=== PATIENT | male | born 1955 | race Caucasian/White ===

== ENCOUNTER 2018-10-26 15:23 | Inpatient (IN) | payer OTHER ==
[~2018-10-26 15:23] MED LIST: 00186-0370-20 IH; 00186-0372-20 IH; ASPIRIN 81M81 MG/TA2 PO; ASPIRIN E.C. 8181 MG PO; BENICAR 20MG TA20 MG PO; CENTRUM SILVER1 CTB PO; COMPLETE SENIOR1 TA1 PO; DALIRESP500 MCG PO; FERROUS SU325 MG/TAB PO; GLUCOPHAGE500 MG/TAB PO; LEVAQUIN 750MG750 M1 PO; NIGHT-TIME COL300 ML PO; PAXIL 20MG20 MG PO; PRILOSEC10 MG PO; REQUIP3 MG PO; REQUIP4 MG PO; RT SPIRIVA18 MCG IH; SINGULAIR 110 MG/TAB PO; TRELEGY ELLIPT1 EACH IH; TRILIPIX 135MG; TRILIPIX 135MG PO; VITAMIN D31000 IU PO; VITAMINC1000TA PO; ZANTAC 150150 MG
--- NOTE | 2018-10-26 15:30 | NUR ---
Pt arrived to room 317, he is independent in the room. He is A/O x3. His breathing is even and unlabored on RA, pt reports he has had SOB x3 months, intermittent cough present. Pt denies any pain at this time. No N/V. POC discussed with patient who verbalizes understanding. IV started to R hand. Call light within reach.
[2018-10-26] MEDS ORDERED: BUSPAR10 MG PO (15:35)
[2018-10-26] MEDS ORDERED: MUCINEX DM 30 M1 TE1 (15:36)
[2018-10-26] MEDS ORDERED: AMBIEN 10MG10 MG PO (15:36)
[2018-10-26 17:13] VITALS: BP 136/76; PULSE 86; TEMP 98.1
[2018-10-26 17:48] LABS: BASO # 0.1 (0.0-0.2); BASO % 0.9 % (0.0-2.0); EOS # 0.4 (0.0-0.7); EOS % 4.9 % (0-4.0); GRAN # 6.2 (1.4-6.5); GRAN % 68.8 % (42.2-75.2); HEMATOCRIT 39.9 % (42.0-52.0); HEMOGLOBIN 12.8 g/dl (13.5-18.0); LYMPH # 1.6 (1.2-3.4); LYMPH % 17.8 % (20.0-51.0); MEAN CELL VOLUME 81 fl (80.0-100.0); MEAN CORPUSCULAR HEMOGLOBIN 26 pg (27.0-31.0); MEAN CORPUSCULAR HGB CONC 32 g/dl (33.0-37.0); MEAN PLATELET VOLUME 9.7 fl (7.4-10.4); MONO # 0.7 (0.1-0.6); MONO % 7.2 % (1.7-9.3); PLATELET COUNT 333 K/mm3 (130-400); RED BLOOD COUNT 4.94 M/mm3 (4.20-5.60); REDCELL DISTRIBUTION WIDTH-CV 13.2 % (11.5-14.5)
[2018-10-26 18:02] LABS: BILIRUBIN,TOTAL 0.5 mg/dL (0.0-1.0); CALCIUM 8.8 mg/dL (8.4-10.2); CREATININE, serum 0.52 (0.66-1.25); POTASSIUM 4.4 mmol/L (3.4-5.0)
--- NOTE | 2018-10-26 19:42 | NUR ---
CXR ordered, verified with JUDITH Parikh that this was needed. She wishes to proceed with xray. Pt states he had one prior to arrival at the hospital and does not wish to have another.
[2018-10-26 19:55] VITALS: BP 155/79; PULSE 89; TEMP 99.1
--- NOTE | 2018-10-26 20:30 | NUR ---
Patient report received from Jorden Bolanos at shift change. Upon assessment at this time patint is resting comfortably in bed, denie pain, n/v or SOA at this time. Patient on RA. NPO after MN for procedure with Dr. Rodrigues tomorrow. Vitals stable. No other needs reported/observed at this time.
[2018-10-27] VITALS (7 sets, daily range): BP systolic 111–150; BP diastolic 56–85; PULSE 72–98; TEMP 97.3–98.6
--- NOTE | 2018-10-27 05:41 | NUR ---
Patient report given to ANDREZ Martínez at this time. Patient resting, no needs observed.
[2018-10-27 07:48] LABS: BASO # 0.1 (0.0-0.2); BASO % 0.8 % (0.0-2.0); EOS # 0.4 (0.0-0.7); EOS % 3.9 % (0-4.0); GRAN # 6.6 (1.4-6.5); HEMATOCRIT 39.3 % (42.0-52.0); HEMOGLOBIN 12.5 g/dl (13.5-18.0); LYMPH # 1.5 (1.2-3.4); LYMPH % 16.1 % (20.0-51.0); MEAN CELL VOLUME 80 fl (80.0-100.0); MEAN CORPUSCULAR HEMOGLOBIN 26 pg (27.0-31.0); MEAN CORPUSCULAR HGB CONC 32 g/dl (33.0-37.0); MEAN PLATELET VOLUME 9.3 fl (7.4-10.4); MONO # 0.7 (0.1-0.6); MONO % 7.9 % (1.7-9.3); PLATELET COUNT 310 K/mm3 (130-400); RED BLOOD COUNT 4.89 M/mm3 (4.20-5.60); REDCELL DISTRIBUTION WIDTH-CV 13.2 % (11.5-14.5)
[2018-10-27 07:58] LABS: ALBUMIN 3.8 gm/dL (3.5-5.0); BILIRUBIN,TOTAL 0.5 mg/dL (0.0-1.0); CALCIUM 8.8 mg/dL (8.4-10.2); CREATININE, serum 0.65 (0.66-1.25); POTASSIUM 4.9 mmol/L (3.4-5.0); TOTAL PROTEIN 6.6 gm/dL (6.4-8.2)
--- NOTE | 2018-10-27 08:27 | NUR ---
Pt assessmtent complete. Pt is up independently in the room. He is A/O x3. His breathing is even and unlabored on RA. Pt denies any pain. No SOB, denies SOB on exertion. Pt does report spitting up clear sputum. No N/V. POC discussed with patient who verbalizes understanding. No needs at this time. Call light within reach.
[2018-10-27 10:23] LABS: INR 1.1 (0.8-3.0)
--- NOTE | 2018-10-27 12:18 | NUR ---
First visit from the transportation dispatcher. No needs right now.
--- NOTE | 2018-10-27 13:30 | NUR ---
Patient back to room from procedure. Bandaid right upper back, CDI. Denies pain and discomfort. No further needs expressed from patient. Call light within reach
[2018-10-27 13:59] LABS: PLEURAL FLUID RBC 485000 /mm3 (0-0); PLEURAL FLUID WBC 1689 /mm3
[2018-10-27 14:02] LABS: PLEURAL FLUID APPEARANCE BLOODY; PLEURAL FLUID COLOR RED
[2018-10-27 14:17] LABS: GLUCOSE,PLEURAL FLUID 119 mg/dL
--- NOTE | 2018-10-27 17:46 | NUR ---
Patient resting in bed, at the bedside. A&O, VSS. IV CDI, fluids infusing. No further needs expressed from patient. Call light within reach
--- NOTE | 2018-10-27 20:00 | NUR ---
PT RESTING IN BED A+OX4. REPORTS PAIN IN BACK WHEN COUGHING RATES AT A 5/10. NO SOA. NO EDEMA. LUNGS SOUNDS DIMINISHED THROUGHOUT. HEART RRR. TELE ON. BOWEL SOUNDS HEARD THROUGHOUT. REPROTS 2-3 BMs DURING DAY. IF TO THE LEFT FA FLUSHES, NO REDNESS, NO SWELLING. IV ANTIBIOTICS RUNNING NOW. NO NEEDS AT THIS TIME. CALL LIGHT IN REACH .
[2018-10-28 03:55] VITALS: BP 111/58; PULSE 86; TEMP 97.5
--- NOTE | 2018-10-28 04:50 | NUR ---
PT HAD AN UNEVENTFUL NIGHT. REPORTS NO SOA. PAIN WITH COUGHING. IV TO THE LEFT FA FLUSHES, NO EDEMA NO, NO REDNESS- IV ANTIBIOTICS GIVEN THROUGHOUT NIGHT. VSS DURING NIGHT. SLEPT MOST OF NIGHT. SCDs ON. NO NEEDS AT THIS TIME. CALL LIGHT IN REACH
--- NOTE | 2018-10-28 07:12 | NUR ---
report given to ANDREZ Nino. pt reports no needs at this time
--- NOTE | 2018-10-28 07:15 | NUR ---
Patient is awake and alert sitting up in bed. IV vancomycin is infusing, denies pain to site, no redness or swelling observed. Respirations are even and nonlabored. Denies having pain. Personal items and call light is within reach.
[2018-10-28 07:48] VITALS: BP 122/76; PULSE 76; TEMP 97.6
--- NOTE | 2018-10-28 08:56 | NUR ---
RADHA met with the patient and his , Alexus to discuss a discharge plan. The pt lives in [place] with Alexus. The pt does not use DME and reports independence with ADLs. The pt does not have a PCP and was interested in [facility] physicians. RADHA provided list of providers. The pt receives medications from [facility] in [place] with no difficulties. The pt does not have advanced directives in the EMR but reports they are completed and designate Alexus. The pt plans to return home upon discharge with Alexus providing transportation. There are no additional needs at this time.
[2018-10-28 12:48] VITALS: BP 111/80; PULSE 86; TEMP 98
[2018-10-28 15:45] VITALS: BP 134/74; PULSE 78; TEMP 97.9
--- NOTE | 2018-10-28 19:34 | NUR ---
Report given to oncoming shift. Personal items and call light are within reach.
[2018-10-28 19:37] VITALS: BP 138/68; PULSE 87; TEMP 98.2
--- NOTE | 2018-10-28 21:00 | NUR ---
pt resting in bed a+ox4. reports no pain. no soa. lungs sounds clear. pt coughing with no production at this time. bowel sounds audible throughout. pt reports loose stool x3 this evening. pt placed on contact precautions and cdiff ordered by Kati WONG. iv to the right FA flushes well- iv antibiotics int. no needs at this tiem. call light in reach
[2018-10-28 23:52] VITALS: BP 137/87; PULSE 98; TEMP 98.1
[2018-10-29 04:38] VITALS: BP 151/86; PULSE 93; TEMP 98
--- NOTE | 2018-10-29 05:10 | NUR ---
pt had an uneventful night. a+ox4. slept throughout night with no reports of pain or soa. pt lungs clear x4. bowel sounds heard throughout. reported 3 episodes of diarrhea before 2100- [facility] stool culture order. no BM since. tele on. SCDs offered. iv flushes well- iv antibiotics running now. no needs at this time. call light in reach
[2018-10-29 06:05] LABS: BASO # 0.1 (0.0-0.2); BASO % 0.8 % (0.0-2.0); EOS # 0.4 (0.0-0.7); EOS % 4.1 % (0-4.0); GRAN # 6.8 (1.4-6.5); GRAN % 72.2 % (42.2-75.2); HEMATOCRIT 40.4 % (42.0-52.0); HEMOGLOBIN 12.9 g/dl (13.5-18.0); LYMPH # 1.4 (1.2-3.4); LYMPH % 14.6 % (20.0-51.0); MEAN CELL VOLUME 80 fl (80.0-100.0); MEAN CORPUSCULAR HEMOGLOBIN 26 pg (27.0-31.0); MEAN CORPUSCULAR HGB CONC 32 g/dl (33.0-37.0); MEAN PLATELET VOLUME 9.4 fl (7.4-10.4); MONO # 0.7 (0.1-0.6); MONO % 7.8 % (1.7-9.3); PLATELET COUNT 315 K/mm3 (130-400); RED BLOOD COUNT 5.04 M/mm3 (4.20-5.60); REDCELL DISTRIBUTION WIDTH-CV 13.2 % (11.5-14.5)
[2018-10-29 06:23] LABS: ALBUMIN 3.8 gm/dL (3.5-5.0); BILIRUBIN,TOTAL 0.4 mg/dL (0.0-1.0); CALCIUM 9.1 mg/dL (8.4-10.2); CREATININE, serum 0.72 (0.66-1.25); POTASSIUM 4.1 mmol/L (3.4-5.0); TOTAL PROTEIN 6.6 gm/dL (6.4-8.2)
--- NOTE | 2018-10-29 06:48 | NUR ---
report given to maria nolasco
[2018-10-29 07:07] VITALS: BP 125/77; PULSE 92; TEMP 97.8
--- NOTE | 2018-10-29 09:53 | NUR ---
Patient is up in room at sink shaving. Denies having any pain. Personal items and call light is within reach.
[2018-10-29] MEDS ORDERED: LEVAQUIN 750MG750 M1 PO (10:41)
--- NOTE | 2018-10-29 12:28 | NUR ---
Patient discharged home accompanied by son. Ambulated out of facility accompanied by staff. Personal items taken with patient. Discharge instructions reviewed. Verbalized understanding.
== END 2018-10-29 12:20 | disposition home or self-care (01) | DRG 188 ==
LOC: MEDICAL 15:23
PROVIDERS: Physician Assistant; Surgery; ADMIT Student in an Organized Health Care Education/Training Program
PROC: 0W993ZZ Drainage of Right Pleural Cavity, Percutaneous Approach (ICD-10-PCS; principal; 2018-10-27)
DX: J90 Pleural effusion, not elsewhere classified (principal); J44.9 Chronic obstructive pulmonary disease, unspecified; K21.9 Gastro-esophageal reflux disease without esophagitis; Z79.82 Long term (current) use of aspirin; Z87.891 Personal history of nicotine dependence; Z87.01 Personal history of pneumonia (recurrent)
CPT/HCPCS: 99222-AI; 99232-AI; 99239; J1956; J2543; J3370; J7030; J7050

== ENCOUNTER 2022-07-04 14:55 | Outpatient (RCR) | payer OTHER ==
[~2022-07-04 14:55] MED LIST changes: +AMBIEN 10MG10 MG PO; +BUSPAR10 MG PO; +DOXYCYCLINE 10100 MG PO; +MUCINEX DM 30 M1 TE1
== END 2022-07-21 | disposition home or self-care (01) ==
LOC: WSOH
DX: S46.012D Strain of muscle(s) and tendon(s) of the rotator cuff of left shoulder, subsequent encounter (principal); I10 Essential (primary) hypertension; E11.9 Type 2 diabetes mellitus without complications; E78.00 Pure hypercholesterolemia, unspecified; F32.A Depression, unspecified; Y99.0 Civilian activity done for income or pay

== ENCOUNTER → 2022-12-27 | Outpatient (CLI) | payer OTHER ==
[~2022-12-27] MED LIST changes: +AMBIEN 5MG TABLE5 MG PO; +COZAAR 50MG50 MG/TAB PO; +CRESTOR40 MG PO; +CYMBALTA 60MG60 MG PO; +DIFLUCAN 100MG100 MG PO; +FLOMAX 0.40.4 MG/CAP PO; +GLUCOPHAGE1000 MG PO; +INSULIN GL100 UNIT/2 SQ; +OZEMPIC1 MG/0.71 SQ; +PROTONIX 40MG T40 MG PO; +RT ADVAIR HFA 1112 G IH; +ZETIA 10MG TAB10 MG PO
== END ==
LOC: COL.RAD 09:47
DX: M62.512 Muscle wasting and atrophy, not elsewhere classified, left shoulder (principal); M19.012 Primary osteoarthritis, left shoulder; R91.8 Other nonspecific abnormal finding of lung field
CPT/HCPCS: Q9967

== ENCOUNTER → 2023-03-28 | Outpatient (CLI) | payer MEDICARE, OTHER ==
[~2023-03-28] MED LIST changes: +PREDNISONE20 MG PO; +ZITHROMAX Z PA250 MG PO
== END ==
LOC: COL.LAB 16:44
DX: J32.9 Chronic sinusitis, unspecified (principal)

== ENCOUNTER → 2023-04-02 | Outpatient (CLI) | payer MEDICARE, OTHER | LOC: COL.LAB 12:33 | DX: J47.9 Bronchiectasis, uncomplicated (principal) ==

== ENCOUNTER 2023-09-12 12:01 | Emergency (ER) | payer MEDICARE, OTHER ==
[~2023-09-12] VITALS: Ht 188 cm; Wt 91.4 kg
[2023-09-12 12:01] VITALS: TEMP 98
[2023-09-12] MEDS ORDERED: NS 1,000 ML IV ONE (12:15)
[2023-09-12 12:38] LABS: HEMOGLOBIN 12.7 g/dl (13.5-18.0); MEAN CELL VOLUME 79 fl (80.0-100.0); MEAN CORPUSCULAR HEMOGLOBIN 26 pg (27-31); MEAN CORPUSCULAR HGB CONC 33 g/dl (33.0-37.0); MEAN PLATELET VOLUME 9.2 fl (7.4-10.4); PLATELET COUNT 402 K/mm3 (130-400); RED BLOOD COUNT 4.92 M/mm3 (4.20-5.60); REDCELL DISTRIBUTION WIDTH-CV 13.6 % (11.5-14.5)
[2023-09-12 13:08] LABS: EOSINOPHIL 1 % (0-4); NEUTROPHILS 70 % (42.0-75.2); PLATELET ESTIMATE INCREASED (NORMAL)
[2023-09-12 13:09] LABS: BURR CELLS 1+; MICROCYTOSIS 1+; OVALOCYTES 1+
[2023-09-12 13:10] LABS: LYMPHOCYTE 28 % (20.0-51.0)
[2023-09-12 13:12] LABS: ALANINE AMINOTRANSFERASE 25 U/L (0-55); ALBUMIN 2.8 g/dL (3.4-4.8); ALKALINE PHOSPHATASE 88 U/L (40-150); ANION GAP 9 mmol/L (7-16); AST,SGOT 18 U/L (5-34); BILIRUBIN,TOTAL 0.4 mg/dL (0.2-1.2); BLOOD UREA NITROGEN 14 mg/dL (8-26); CALCIUM 8.8 mg/dL (8.4-10.2); CHLORIDE 103 mEq/L (98-107); CREATININE, serum 0.76 mg/dL (0.72-1.25); GLUCOSE 370 mg/dL (70-99); MAGNESIUM 1.6 mg/dL (1.6-2.6); POTASSIUM 4.4 mEq/L (3.5-4.5); SODIUM 136 mEq/L (136-145)
[2023-09-12 13:32] LABS: TSH w REFLEX 0.987 uIU/mL (0.350-4.940)
[2023-09-12 13:33] LABS: TROPONIN-I < 0.010 ng/mL (0.00-0.033)
[2023-09-12] MEDS ORDERED: Amiodarone 450 MG in D5W Excel 250 ML IV SCH ×2 (13:40→19:40)
[2023-09-12] MEDS ORDERED: Magnesium Sulfate 8% 50 ML IV ONE (17:15)
[2023-09-12] MEDS ORDERED: Acetaminophen 500 MG TAB PO ONE (18:00)
[2023-09-12 20:15] VITALS: BP 87/69; PULSE 88
== END 2023-09-12 20:34 | disposition short-term general hospital (02) ==
LOC: COL.ER 12:01
PROVIDERS: Emergency Medicine
DX: I48.91 Unspecified atrial fibrillation (principal); I10 Essential (primary) hypertension
CPT/HCPCS: J0282; J3475; J7030; J7060

== ENCOUNTER 2023-10-10 06:47 | Day surgery (SDC) | payer MEDICARE, OTHER ==
[~2023-10-10] VITALS: Ht 188 cm; Wt 97.1 kg
[2023-10-10 07:13] VITALS: BP 118/70; PULSE 72; TEMP 97.9
[2023-10-10] MEDS ORDERED: CEPHALEXIN500 M1 PO (09:19)
--- NOTE | 2023-10-10 10:11 | NUR ---
Pt ambulated with a steady gait to EU12 accompaied by . Pt was scheduled for a loop recorder implantation. EKG done. Meds and HX reviewed with the pt and their . Consent for the procedure was signed. Post procedure the chest dressing was assessed. The dressing was clean, dry, and intact. Discharge education and information discussed with the pt. No questions at this time. Pt exited the unit with a steady gait accompanied by thier .
== END 2023-10-10 09:50 | disposition home or self-care (01) ==
LOC: COL.CAR 06:47
DX: I48.0 Paroxysmal atrial fibrillation (principal); I10 Essential (primary) hypertension; E78.2 Mixed hyperlipidemia; E66.9 Obesity, unspecified; Z68.27 Body mass index [BMI] 27.0-27.9, adult; Z87.891 Personal history of nicotine dependence; Z79.899 Other long term (current) drug therapy
CPT/HCPCS: C1764